=== PATIENT | male | born 1995 | race Caucasian/White ===

== ENCOUNTER 2017-05-31 18:39 | Emergency (ER) | END 2017-05-31 20:08 | disposition home or self-care (01) ==

== ENCOUNTER 2018-07-27 00:48 | Emergency (ER) | payer SELFPAY ==
[~2018-07-27] VITALS: Ht 167.6 cm; Wt 106.3 kg
[~2018-07-27 00:48] MED LIST: IBUP-1542 PO
[2018-07-27 01:00] VITALS: BP 140/72; PULSE 86; RESP 18; Ht 167.6 cm; Wt 106.3 kg
--- NOTE | 2018-07-27 02:35 | ERD ---
ER Documentation Chief Complaint Chief Complaint CWP sharp, radiating to back HPI This is a 22-year-old male presents emerged department with complaints of sharp chest pain. Stated that this is reproducing. Denies headache, head injury, loss of consciousness, dizziness, neck pain, neck stiffness, throat pain, difficulty swallowing, difficulty breathing lying flat, shoulder pain, back pain, abdominal pain, nausea, vomiting, constipation, di arrhea, urinary symptoms, loss of bowel and bladder control, trauma, injury, falls, difficulty walking due to pain, numbness or tingling sensation, calf pain, recent travel, recent major surgery in the last 3 weeks, calf pain, recent long travel, recent exposure to any illness, recent antibiotic use in the last 3 months, fever, chills, seizures. Past medical history: Surgical history: Social: Denies smoking, use of alcoholic beverages, use of illegal drugs. ROS All systems reviewed and are negative except as per history of present illness. Medications Home Meds Active Scripts Cyclobenzaprine Hcl* (Cyclobenzaprine Hcl*) 10 Mg Tablet, 10 MG PO TID PRN for MUSCLE SPASMS, #15 TAB Prov:PASILABAN,LINHAR F 07/27/18 Ibuprofen* (Motrin*) 800 Mg Tab, 800 MG PO Q6H PRN for PAIN AND OR ELEVATED TEMP, #30 TAB Prov:WAYNEILAODALIS,LINHAR F 07/27/18 Ibuprofen* (Motrin*) 600 Mg Tab, 600 MG PO Q6, #30 TAB Prov:DALI VILLARREALC 06/24/17 Ibuprofen* (Motrin*) 600 Mg Tab, 600 MG PO Q6, #30 TAB Prov:YOLETTE GILL 05/31/17 Allergies Allergies: Coded Allergies: No Known Allergy (Unverified , 05/31/17) PMhx/Soc History of Surgery: Yes (HERNIA REPAIR) Hx Alcohol Use: No Hx Substance Use: No Hx Tobacco Use: No Smoking Status: Never smoker Physical Exam Vitals Vital Signs Date Temp Pulse Resp B/P (MAP) Pulse Ox O2 O2 Flow FiO2 Time Delivery Rate 07/27/18 98.6 86 18 140/72 97 01:00 (94) Physical Exam Const: No acute distress Head: Atraumatic Eyes: Normal Conjunctiva ENT: Normal External Ears, Nose and Mouth. Neck: Full range of motion. No meningismus. Resp: Clear to auscultation bilaterally. Chest area: No signs of direct injury to the chest. Tenderness to palpation to anterior area. No vesicular lesions. Cardio: Regular rate and rhythm, no murmurs Abd: Soft, non tender, non distended. Normal bowel sounds. Negative Gallegos sign. Skin: No petechiae or rashes Back: No midline or flank tenderness Ext: No cyanosis, or edema Neur: Awake and alert. No vesicular lesions. Psych: Normal Mood and Affect Results 24 hrs Current Medications Medications Dose Sig/Esdras Start Time Status Last (Trade) Ordered Route PRN Stop Time Admin Dose Reason Admin 10 mg ONCE ONCE 07/27/18 DC 07/27/18 Cyclobenzapri PO 03:00 02:46 ne HCl 07/27/18 03:01 (Flexeril) Aspirin 325 mg ONCE ONCE 07/27/18 DC 07/27/18 (Aspirin) PO 03:00 02:46 07/27/18 03:01 Procedures/MDM Heart score: Unlikely to have acute myocardial infarction. Diagnostic tests: EKG: Normal sinus rhythm with a ventricular rate of 84 bpm. No STEMI. Read by supervising physician. Treatment: Flexeril. Aspirin. Re-evaluation: Denies chest pain. Negative Gallegos sign. Stated that he feels much better at this time and that he is ready to go home. Differential diagnosis I have low suspicion for acute myocardial infarction, cardiac process, pneumonia, sepsis, bronchospasms, rib fracture, pneumothorax, hemothorax, punctured lungs. Final diagnosis: Costochondritis. Prescription: Flexeril. Motrin. Follow-up with PCP in the next 24-48 hours. PCP to refer patient to dock operations supervisor if symptoms persist. Come back here in the emergency department for any new symptoms or any worsening symptoms. All questions and concerns were answered. Patient and family members verbalized understanding and agreed with plan of care. Hemodynamically stable on discharge. Departure Diagnosis: Primary Impression: Chest wall pain Additional Impression: Costochondritis Condition: Stable Additional Instructions: Follow-up with PCP in the next 24-48 hours. PCP to refer patient to dock operations supervisor if symptoms persist. Come back here in the emergency department for any new symptoms or any worsening symptoms. BISHOP FUNEZ Jul 27, 2018 02:35
[2018-07-27] MEDS ORDERED: IBUP800T48 PO (02:44)
[2018-07-27] MEDS ORDERED: CYCL10TA7 PO (02:44)
[2018-07-27] MEDS ORDERED: CYCLOBENZAPRINE 10 MG TAB PO ONE (03:00)
[2018-07-27] MEDS ORDERED: ASPIRIN 325 MG TAB PO ONE (03:00)
== END 2018-07-27 02:56 | disposition home or self-care (01) ==
LOC: FTE 00:48
DX: M94.0 Chondrocostal junction syndrome [Tietze] (principal)
CPT/HCPCS: 93005